=== PATIENT | female | born 2000 | race Two or more races ===

== ENCOUNTER 2020-10-24 13:36 | Outpatient (CLI) | payer OTHER | END 2020-10-24 14:36 | disposition home or self-care (01) | LOC: PRENATAL 13:36 | PROVIDERS: ATTEND Obstetrics & Gynecology Maternal & Fetal Medicine | DX: O35.0XX1 Maternal care for (suspected) central nervous system malformation in fetus, fetus 1 (principal); O35.3XX1 Maternal care for (suspected) damage to fetus from viral disease in mother, fetus 1; O98.512 Other viral diseases complicating pregnancy, second trimester; O43.92 Unspecified placental disorder, second trimester; Z36.89 Encounter for other specified antenatal screening; Z3A.25 25 weeks gestation of pregnancy ==

== ENCOUNTER 2022-04-26 10:36 | Emergency (ER) | payer OTHER ==
[~2022-04-26] VITALS: Ht 162.6 cm; Wt 48.5 kg
== END 2022-04-26 14:22 | disposition home or self-care (01) ==
LOC: ER 10:36
DX: J04.0 Acute laryngitis (principal)

== ENCOUNTER 2023-02-12 13:50 | Emergency (ER) | payer OTHER ==
[~2023-02-12] VITALS: Ht 162.6 cm; Wt 50.3 kg
[2023-02-12 19:08] LABS: HEMATOCRIT 34.1 % (36.0-45.00); MEAN CELL VOLUME 78.3 fL (80.00-100.00); MEAN CORPUSCULAR HEMOGLOBIN 25.2 pg (27.00-32.0); MEAN CORPUSCULAR HGB CONC 32.2 g/dl (32.0-36.0); PLATELET COUNT 246 K/uL (150-450); RED BLOOD COUNT 4.35 M/uL (4.00-6.00); RED CELL DISTRIBUTION WIDTH 17.9 % (11.5-14.5)
== END 2023-02-12 20:12 | disposition home or self-care (01) ==
LOC: ER 13:50
PROVIDERS: General Practice
DX: K13.0 Diseases of lips (principal)